=== PATIENT | female | born 1960 | race Caucasian/White ===

== ENCOUNTER 2023-03-18 22:07 | Emergency (ER) | payer BC ==
[2023-03-18] MEDS ORDERED: Acetaminophen 325 MG Tab PO ONE (22:51)
[2023-03-18] MEDS ORDERED: Ibuprofen 600 MG Tab PO ONE (22:51)
[2023-03-18] MEDS ORDERED: traMADol 50 MG Tab PO ONE (22:51)
== END 2023-03-18 23:05 | disposition home or self-care (01) ==
LOC: JD.ED 22:07
DX: S52.502A Unspecified fracture of the lower end of left radius, initial encounter for closed fracture (principal); S52.612A Displaced fracture of left ulna styloid process, initial encounter for closed fracture; Z87.891 Personal history of nicotine dependence; W19.XXXA Unspecified fall, initial encounter
CPT/HCPCS: 73110-26-LT; 73110-LT; 99283